=== PATIENT | male | born 1965 | race Caucasian/White ===

== ENCOUNTER 2018-08-02 18:22 | Emergency (ER) | payer OTHER ==
[2018-08-02] MEDS ORDERED: AZITHROMYCIN 250 MG TABLET PO ONE (19:17)
[2018-08-02] MEDS ORDERED: PREDNISONE 20 MG TABLET ONE (19:17)
[2018-08-02] MEDS ORDERED: BENZONATATE 100 MG CAPSULE PO ONE (19:17)
== END 2018-08-02 19:37 | disposition home or self-care (01) ==
LOC: EDH 18:22
DX: J01.90 Acute sinusitis, unspecified (principal); R05 Cough; I10 Essential (primary) hypertension; J45.909 Unspecified asthma, uncomplicated
CPT/HCPCS: 71045